=== PATIENT | male | born 1980 | race Caucasian/White ===

== ENCOUNTER 2018-04-07 00:49 | Emergency (ER) | payer BC ==
[~2018-04-07] VITALS: Ht 175.2 cm; Wt 77.1 kg
--- NOTE | ~2018-04-07 | EKG ---
[place], [place] ELECTROCARDIOGRAM REPORT NAME: VINCENT CHANEY UNIT #: [id number] ROOM: DOCTOR: EPIPHANY DRAFT REPORT BIRTHDATE: [birth year] [facility] Test Date: 2018-04-07 Test Time: 01:52:30 Pat Name: VINCENT CHANEY Department: ER Room: Gender: Budget Consultant: SS RESP : 1980 Requested By: JOSE FRANCISCO LU Order Number: [id number] Reading MD: Sammy Navarro MD Measurements Intervals [place] Rate: 101 P: -70 ND: 119 QRS: 23 QRSD: 83 T: 20 QT: 329 QTc: 427 Interpretive Statements Ectopic atrial tachycardia, unifocal Borderline short ND interval Anteroseptal infarct, old Baseline wander in lead(s) V2 Electronically Signed On 04-08-2018 6:32:05 PST by Sammy Navarro MD CM:EKGRPT:ELECTROCARDIOGRAM REPORT [id number] JOSE FRANCISCO SAGE DRAFT REPORT JOSE FRANCISCO LU DO
[2018-04-07 01:49] LABS: BASO # 0.1 10*3/uL (0.0-0.1); BASO % 0.6 % (0.0-1.0); EOS # 0.1 10*3/uL (0.0-0.4); HEMATOCRIT 50.4 % (42.0-52.0); HEMOGLOBIN 17.7 g/dl (14.0-18.0); LYMPH # 2.8 10*3/uL (1.3-4.4); LYMPH % 19.7 % (27.0-41.0); MEAN CELL VOLUME 92.5 fl (80.0-94.0); MEAN CORPUSCULAR HGB 32.5 pg (27.0-31.0); MEAN CORPUSCULAR HGB CONC 35.1 g/dl (33.0-37.0); MEAN PLATELET VOLUME 11.4 fl (9.6-12.3); MONO # 0.9 10*3/uL (0.1-1.0); MONO % 5.9 % (3.0-9.0); NEUT # 10.5 10*3/uL (2.3-7.9); NEUT % 72.3 % (47.0-73.0); PLATELET COUNT AUTOMATED 259 10*3/uL (130-400); RED BLOOD COUNT 5.45 10*6/uL (4.50-5.90); RED CELL DISTRI WIDTH 12.6 % (0-14.5); WHITE BLOOD COUNT 14.5 10*3/uL (4.8-10.8)
[2018-04-07 02:53] LABS: ALBUMIN 4.5 gm/dl (3.1-4.5); BUN 15 mg/dl (7-24); CHLORIDE 103 mmol/L (98-107); CREATININE 1.05 mg/dL (0.70-1.30); SGOT/AST 23 IU/L (3-35); SODIUM 138 mmol/L (136-145); TOTAL PROTEIN 8.4 gm/dL (6.4-8.2)
[2018-04-07 03:09] LABS: SGPT/ALT 30 U/L (12-78)
[2018-04-07 03:16] LABS: ALKALINE PHOSPHATASE 116 U/L (45-117)
[2018-04-07] MEDS ORDERED: GOOD NEIGHBOR M25 MG PO (03:31)
== END 2018-04-07 03:59 | disposition home or self-care (01) ==
LOC: ED 00:49
PROVIDERS: Emergency Medicine
DX: R42 Dizziness and giddiness (principal); R53.83 Other fatigue; R11.0 Nausea; F17.200 Nicotine dependence, unspecified, uncomplicated

== ENCOUNTER 2018-12-02 14:40 | Emergency (ER) | payer BC ==
[~2018-12-02] VITALS: Ht 175.2 cm; Wt 75.7 kg
[~2018-12-02 14:40] MED LIST: GOOD NEIGHBOR M25 MG PO
[2018-12-02] MEDS ORDERED: IBU800 MG PO (16:43)
== END 2018-12-02 16:44 | disposition home or self-care (01) ==
LOC: ED 14:40
DX: S29.012A Strain of muscle and tendon of back wall of thorax, initial encounter (principal); R07.81 Pleurodynia; F17.200 Nicotine dependence, unspecified, uncomplicated; X58.XXXA Exposure to other specified factors, initial encounter; Y93.89 Activity, other specified; Y92.89 Other specified places as the place of occurrence of the external cause; Y99.8 Other external cause status